=== PATIENT | female | born 1940 | race Caucasian/White ===

== ENCOUNTER 2021-08-13 13:54 | Day surgery (SDC) | payer MEDICARE, OTHER ==
[2021-08-13] VITALS (19 sets, daily range): BP systolic 95–169; BP diastolic 47–77
[~2021-08-13] VITALS: Ht 160 cm; Wt 80.5 kg
[~2021-08-13 13:54] MED LIST: ASPI-1053 PO; ATOR40TA PO; DOCUMENT DATE & TIME OF BETA-BLOCKER PO ONE; FAMO-128 PO; HYDR12.55 PO; METO50TA7 PO; ROPIVAcaine 0.5% (5mg/ml) 30ml vial ONE; VANCOMYCIN 1,500MG inj. 1,500 MG in normal saline 500ml IV soln 500 ML IV SCH; ceFAZolin 2gm in dextrose, iso 50 ML IV ONE; cloNIDine hcl/PF 100mcg/ml inj ONE; epiNEPHrine 1 mg/ml inj ONE; famotidine 20mg tablet PO ONE; ketorolac trometh. 30mg/ml inj. ONE; ringers solution, lacted 1,000 ML IV SCH; scopolamine 1mg/72 hr patch TD ONE; vancomycin 1,000mg inj ONE
[2021-08-13] MEDS ORDERED: bisacodyl 10mg suppository rectal RC PRN (13:55)
[2021-08-13] MEDS ORDERED: diphenhydrAMINE 25mg capsule PO PRN ×2 (13:55)
[2021-08-13] MEDS ORDERED: acetaminophen 325mg tablet PO PRN (13:55)
[2021-08-13] MEDS ORDERED: HYDROcodone/acetaminophen 10/325mg tab PO PRN ×2 (13:55)
[2021-08-13] MEDS ORDERED: magnesium hydroxide 30ml (MOM) UD suspension PO PRN (13:55)
[2021-08-13] MEDS ORDERED: ondansetron/PF 4mg/2ml inj IV PRN ×2 (13:55→16:20)
[2021-08-13] MEDS ORDERED: HYDROmorphone 1 mg/ml syringe IV PRN (13:55)
[2021-08-13] MEDS ORDERED: HYDROmorphone inj. 0.5 MG/0.5 ML DISP.SYRIN IV PRN (13:55)
[2021-08-13] MEDS ORDERED: vancomycin 1,000mg inj ONE (14:14)
[2021-08-13] MEDS ORDERED: fentaNYL/PF 50MCG/1 ML 2ML syringe ONE (14:50)
[2021-08-13] MEDS ORDERED: MIDAZolam 1 MG/ML 5ML VIAL ONE (14:50)
[2021-08-13] MEDS ORDERED: propofol inj 20 ML IV ONE (15:13)
--- NOTE | 2021-08-13 16:09 | NUR ---
Received from OR via , accompanied by Anesthesiologist DR DAY and report given by Anesthesiolgist. PT PRESENTS WITH 18G LEFT WRIST, DRESSOMG ON LEFT HIP DRY AND INTACT WITH ISLAND DRESSING. VSS. Addendum: 08/13/21 at 1623 by Charlotte Harris RN, RN Amended: Links added.
[2021-08-13] MEDS ORDERED: meperidine/PF 25mg/ml syringe IV PRN ×3 (16:20)
[2021-08-13] MEDS ORDERED: ringers solution, lacted 1,000 ML IV SCH (16:20)
[2021-08-13] MEDS ORDERED: morphine 2 MG/ML inj. syringe IV PRN (16:20)
[2021-08-13] MEDS ORDERED: proCHLORperazine 10 MG/2 ml inj IV PRN (16:20)
[2021-08-13] MEDS ORDERED: morphine 4 MG/ML inj SYRINge IV PRN (16:20)
[2021-08-13] MEDS ORDERED: tranexamic acid inj. 800 MG in normal saline 100ml IV soln 100 ML IV ONE (17:00)
--- NOTE | 2021-08-13 17:22 | NUR ---
RECEIVED REPORT FROM VICENTE IN PACU.
--- NOTE | 2021-08-13 17:29 | NUR ---
Report called to receiving nurse MARILUZ MORALES . Transferred via HOSPITAL BED TO ROOM 345B WITH 2 BAGS OF PT Belongings. PT BED IN LOW LOCKED POSITION WITH CALL LIGHT IN REACH AND POSITION OF COMFORT.. Special Issues communicated to receiving nurse. Addendum: 08/13/21 at 1747 by Charlotte Harris RN RN Amended: Links added.
--- NOTE | 2021-08-13 17:45 | NUR ---
PT TRANSPORTED TO FLOOR. EDUCATED CERTIFIED PERSONAL CHEF LIGHT, BATHROOM USE, PAIN MEDICATION. POST OP VITALS STARTED.
[2021-08-13] MEDS: potassium cl 20mEq in 1/2 NS 1,000 ML IV SCH ×2 (17:49→21:55)
--- NOTE | 2021-08-13 18:30 | NUR ---
Patient in room [facility]. I have received report from Filomena and had the opportunity to ask questions and assume patient care.
[2021-08-13] MEDS: famotidine 20mg tablet PO SCH (19:31)
[2021-08-13] MEDS: ascorbic acid 500mg tablet PO SCH (19:31)
[2021-08-13] MEDS: gabapentin 300mg capsule PO SCH (21:00)
[2021-08-13] MEDS ORDERED: traMADol 50MG tablet PO PRN (21:00)
[2021-08-13] MEDS: sennosides 8.6mg tablet PO SCH (21:00)
[2021-08-13] MEDS: proCHLORperazine 10 MG/2 ml inj IV PRN (21:21)
[2021-08-14] VITALS: BP 128/65
[2021-08-14] MEDS: ceFAZolin 2gm in dextrose, iso 50 ML IV SCH ×2 (00:24→08:32)
[2021-08-14 04:00] VITALS: BP 123/90
[2021-08-14] MEDS: potassium cl 20mEq in 1/2 NS 1,000 ML IV SCH ×3 (04:23→21:40)
[2021-08-14] MEDS: proCHLORperazine 10 MG/2 ml inj IV PRN (05:33)
--- NOTE | 2021-08-14 06:20 | NUR ---
Problems reprioritized. Patient report given, questions answered & plan of care reviewed with Alis MORALES.
[2021-08-14 06:52] LABS: BASOPHILS # (AUTO) 0.1 X10'3 (0-0.2); BASOPHILS % (AUTO) 0.5 % (0-1); EOSINOPHILS % (AUTO) 0.1 % (0-6); HEMATOCRIT 38.1 % (35.0-45.0); HEMOGLOBIN 13.4 g/dl (12.0-16.0); LYMPHOCYTES # (AUTO) 1.5 X10'3 (1.1-4.8); LYMPHOCYTES % (AUTO) 14.5 % (21-51); MEAN CORPUSCULAR HEMOGLOBIN 31.8 PG (27.0-31.0); MEAN CORPUSCULAR HGB CONC 35.1 g/dL (33.0-36.5); MEAN CORPUSCULAR VOLUME 90.7 FL (78-98); MEAN PLATELET VOLUME 9.2 FL (7.4-10.4); MONOCYTES # (AUTO) 0.7 X10'3 (0-0.9); MONOCYTES % (AUTO) 6.9 % (2-12); NEUTROPHILS # (AUTO) 8.3 X10'3 (1.8-7.7); PLATELET COUNT 218 X10'3 (140-440); RED CELL DISTRIBUTION WIDTH 12.5 % (11.5-14.5); WHITE BLOOD COUNT 10.7 X10'3 (4.5-11.0)
[2021-08-14 06:56] LABS: ANION GAP 12 (8-16); CHLORIDE 108 MMOL/L (99-107); POTASSIUM 3.8 MMOL/L (3.5-5.1); SODIUM 145 MMOL/L (135-145); TOTAL CARBON DIOXIDE 25.3 MMOL/L (24-32)
[2021-08-14 07:30] VITALS: BP 156/50
[2021-08-14] MEDS: HYDROchlorothiazide 12.5mg capsule PO SCH (08:31)
[2021-08-14] MEDS: famotidine 20mg tablet PO SCH ×2 (08:31→20:18)
[2021-08-14] MEDS: aspirin 325mg tablet PO SCH (08:31)
[2021-08-14] MEDS: multivitamins, therapeutics tablet PO SCH (08:31)
[2021-08-14] MEDS: gabapentin 300mg capsule PO SCH ×3 (08:32→20:17)
[2021-08-14] MEDS: ascorbic acid 500mg tablet PO SCH ×2 (08:32→20:18)
[2021-08-14] MEDS: metoprolol succinate 25mg (24-HOUR) SR. Tablet PO SCH (08:32)
[2021-08-14 12:00] VITALS: BP 110/50
[2021-08-14 18:00] VITALS: BP 120/72
--- NOTE | 2021-08-14 18:51 | NUR ---
Report given to Prudence RN, all questions answered.
--- NOTE | 2021-08-14 19:39 | NUR ---
Patient in room [facility]. I have received report from MART MORALES and had the opportunity to ask questions and assume patient care.
[2021-08-14] MEDS: celeCOXIB 100mg capsule PO SCH (20:17)
[2021-08-14] MEDS: sennosides 8.6mg tablet PO SCH (20:17)
[2021-08-15 00:15] VITALS: BP 112/63
[2021-08-15] MEDS: potassium cl 20mEq in 1/2 NS 1,000 ML IV SCH (05:55)
[2021-08-15 06:04] LABS: BASOPHILS % (AUTO) 0.4 % (0-1); EOSINOPHILS % (AUTO) 0.3 % (0-6); HEMOGLOBIN 11.5 g/dl (12.0-16.0); LYMPHOCYTES # (AUTO) 1.4 X10'3 (1.1-4.8); LYMPHOCYTES % (AUTO) 14.2 % (21-51); MEAN CORPUSCULAR VOLUME 91.4 FL (78-98); MEAN PLATELET VOLUME 9.3 FL (7.4-10.4); NEUTROPHILS # (AUTO) 7.5 X10'3 (1.8-7.7); NEUTROPHILS % (AUTO) 75.1 % (42-75); PLATELET COUNT 155 X10'3 (140-440); RED BLOOD COUNT 3.61 X10'6 (4.20-5.60); RED CELL DISTRIBUTION WIDTH 12.8 % (11.5-14.5)
--- NOTE | 2021-08-15 06:19 | NUR ---
Problems reprioritized. Patient report given, questions answered & plan of care reviewed with NICOLE MORALES.
--- NOTE | 2021-08-15 06:24 | NUR ---
Student documentation: I have reviewed and agree with all interventions, assessments performed and documented by LARRY MAYNARD.
--- NOTE | 2021-08-15 06:24 | NUR ---
Patient in room [facility]. I have received report from Tiffany camarillo and had the opportunity to ask questions and assume patient care.
--- NOTE | 2021-08-15 06:25 | NUR ---
Student Medication Administration: For this medication-pass time frame, all medication were reviewed, dispensed, administered and documented per hospital policy by LARRY MAYNARD.
[2021-08-15 06:35] VITALS: BP 117/57
[2021-08-15] MEDS: gabapentin 300mg capsule PO SCH (08:20)
[2021-08-15] MEDS: multivitamins, therapeutics tablet PO SCH (08:20)
[2021-08-15] MEDS: ascorbic acid 500mg tablet PO SCH (08:20)
[2021-08-15] MEDS: famotidine 20mg tablet PO SCH (08:20)
[2021-08-15] MEDS: HYDROchlorothiazide 12.5mg capsule PO SCH (08:20)
[2021-08-15] MEDS: aspirin 325mg tablet PO SCH (08:20)
[2021-08-15] MEDS: metoprolol succinate 25mg (24-HOUR) SR. Tablet PO SCH (08:21)
[2021-08-15] MEDS: celeCOXIB 100mg capsule PO SCH (08:21)
--- NOTE | 2021-08-15 11:02 | NUR ---
pt was stable for discharge, Iv removed cannula intact, pt discharge info gone over with no questions, all belongings gathered and placed in a belongings bag, pt wheeled down in a wheelchair by aide, and picked up by in front of lobby, in a private vehicle.
[2021-08-16] MEDS ORDERED: atorvastatin 10mg tablet PO SCH (08:00)
== END 2021-08-15 11:06 | disposition home or self-care (01) ==
LOC: SUR 3N 13:54 → PRE-OP 13:54 → SUR 3N 08-15 11:06 → PRE-OP 08-15 11:06
PROVIDERS: ATTEND Orthopaedic Surgery
DX: M16.12 Unilateral primary osteoarthritis, left hip (principal); K21.9 Gastro-esophageal reflux disease without esophagitis; I10 Essential (primary) hypertension; I47.1 Supraventricular tachycardia; E66.9 Obesity, unspecified; Z68.31 Body mass index [BMI] 31.0-31.9, adult; Z98.890 Other specified postprocedural states; Z79.899 Other long term (current) drug therapy; Z87.891 Personal history of nicotine dependence; Z72.89 Other problems related to lifestyle; Z88.5 Allergy status to narcotic agent; Z88.8 Allergy status to other drugs, medicaments and biological substances; Z90.710 Acquired absence of both cervix and uterus; Z90.721 Acquired absence of ovaries, unilateral; Z79.82 Long term (current) use of aspirin
CPT/HCPCS: 27130; 36415; 72170; 80051; 82948; 85025; 86885; 86900; 86901; 97110; 97116; 97530; C1776; J0171; J0735; J0780; J1170; J1885; J2250; J2405; J2704; J3010; J3370; J7120; Z7506; Z7508; Z7512; A7000; G0378; J2795; J3480